=== PATIENT | male | born 1985 | race Caucasian/White ===

== ENCOUNTER 2024-05-25 23:43 | Emergency (ER) | payer OTHER ==
[~2024-05-25] VITALS: Ht 185.4 cm; Wt 84.1 kg
[2024-05-26] MEDS: TETRACAINE 0.5% 4 ML OPHTHALMIC DROPS EACHEYE ONE (00:40)
[2024-05-26] MEDS: ondansetron 4mg rapidly disintigrating tab PO ONE (00:53)
--- NOTE | 2024-05-26 01:18 | NUR ---
[facility]A AT BEDSIDE AT THIS TIME
[2024-05-26] MEDS: fluorescein sod 1mg ophthalmic strip EACHEYE ONE (01:30)
[2024-05-26] MEDS: ketorolac trometh 30MG/ML vial 30 MG/ML VIAL IM ONE (01:49)
[2024-05-26] MEDS ORDERED: ERYT1OIN6 EACHEYE (01:56)
[2024-05-26 02:15] VITALS: BP 136/88; PULSE 66; RESP 14; TEMP 98.6; O2SAT 99
== END 2024-05-26 02:05 | disposition home or self-care (01) ==
LOC: ER 23:44
DX: H16.8 Other keratitis (principal)
CPT/HCPCS: 96372; 99285; J1885